=== PATIENT | male | born 1965 | race Caucasian/White ===

== ENCOUNTER 2017-05-21 13:50 | Emergency (ER) | payer SELFPAY ==
[2017-05-21 16:52] VITALS: BP 121/68
== END 2017-05-21 16:52 | disposition home or self-care (01) ==
LOC: ED 13:50
DX: R22.42 Localized swelling, mass and lump, left lower limb (principal)

== ENCOUNTER 2017-05-27 11:55 | Emergency (ER) | payer SELFPAY ==
[~2017-05-27] VITALS: Ht 180.3 cm; Wt 100.0 kg
[2017-05-27 14:18] VITALS: BP 120/64
== END 2017-05-27 14:18 | disposition home or self-care (01) ==
LOC: ED 11:55
DX: S80.12XA Contusion of left lower leg, initial encounter (principal); X58.XXXA Exposure to other specified factors, initial encounter; Y93.89 Activity, other specified; Y99.8 Other external cause status; Y92.89 Other specified places as the place of occurrence of the external cause
CPT/HCPCS: Q0092

== ENCOUNTER 2017-06-01 09:02 | Emergency (ER) | payer SELFPAY | END 2017-06-01 10:00 | disposition left against medical advice (07) | LOC: ED 09:02 | DX: Z53.21 Procedure and treatment not carried out due to patient leaving prior to being seen by health care provider (principal) ==

== ENCOUNTER 2019-12-07 10:00 | Emergency (ER) | payer SELFPAY ==
[~2019-12-07] VITALS: Ht 180.3 cm; Wt 97.1 kg
[2019-12-07 10:10] VITALS: Ht 180.3 cm; Wt 97.1 kg
[2019-12-07 12:23] VITALS: BP 132/84
== END 2019-12-07 12:23 | disposition home or self-care (01) ==
LOC: ED 10:00
DX: S83.91XA Sprain of unspecified site of right knee, initial encounter (principal); W11.XXXA Fall on and from ladder, initial encounter; Y93.89 Activity, other specified; Y92.89 Other specified places as the place of occurrence of the external cause; Y99.8 Other external cause status

== ENCOUNTER 2019-12-15 08:48 | Emergency (ER) | payer SELFPAY ==
[~2019-12-15] VITALS: Ht 175.3 cm; Wt 98.9 kg
[2019-12-15 08:56] VITALS: Ht 175.3 cm; Wt 98.9 kg
[2019-12-15 09:44] LABS: BASOPHIL % 0.7 % (0-2); PLATELET COUNT 195 x10^3mcL (130-400); RED CELL DISTRIBUTION WIDTH 12.7 % (11.5-14.5)
[2019-12-15 09:56] LABS: CALCIUM 8.3 mg/dL (8.5-10.1); CHLORIDE SERUM 107 mmol/L (98-107); CREATININE SERUM 0.9 mg/dL (0.7-1.3); GFR1 > 60 mL/min; GLUCOSE SERUM 105 mg/dL (74-106); POTASSIUM SERUM 3.5 mmol/L (3.5-5.1); SODIUM SERUM 140 mmol/L (136-145)
[2019-12-15 10:18] LABS: ALBUMIN 3.3 g/dL (3.4-5.0); TOTAL PROTEIN, SERUM 6.4 g/dL (6.4-8.2)
[2019-12-15 10:19] LABS: ALKALINE PHOSPHATASE 80 U/L (46-116); ALT/SGPT 27 U/L (16-63); AST/SGOT 21 U/L (15-37); BILIRUBIN TOTAL 0.7 mg/dL (0.20-1.00); LIPASE 123 IU/L (73-393)
[2019-12-15 11:39] VITALS: BP 127/85
== END 2019-12-15 11:39 | disposition home or self-care (01) ==
LOC: ED 08:48
PROVIDERS: Emergency Medicine
DX: A08.4 Viral intestinal infection, unspecified (principal)
CPT/HCPCS: 87804; J2405; J7030